=== PATIENT | male | born 1935 ===

== ENCOUNTER 2023-10-02 13:18 | Emergency (ER) | payer OTHER ==
[~2023-10-02] VITALS: Ht 175.2 cm; Wt 74.8 kg
[2023-10-02 13:58] LABS: BASO % 0.1 % (0.0-1.0); EOS % 0.1 % (1.0-4.0); HEMATOCRIT 41.6 % (42.0-52.0); LYMPH # 0.7 10*3/uL (1.3-4.4); LYMPH % 5.2 % (27.0-41.0); MEAN CELL VOLUME 94.5 fl (80.0-94.0); MEAN CORPUSCULAR HGB 30.9 pg (27.0-31.0); MEAN CORPUSCULAR HGB CONC 32.7 g/dl (33.0-37.0); MEAN PLATELET VOLUME 9.7 fl (9.6-12.3); MONO # 1.1 10*3/uL (0.1-1.0); MONO % 7.8 % (3.0-9.0); NEUT # 11.9 10*3/uL (2.3-7.9); NEUT % 86.4 % (47.0-73.0); PLATELET COUNT AUTOMATED 226 10*3/uL (130-400); RED CELL DISTRI WIDTH 13.3 % (0-14.5); WHITE BLOOD COUNT 13.7 10*3/uL (4.8-10.8)
[2023-10-02] MEDS ORDERED: LORazepam 1 MG TAB PO ONE (14:30)
[2023-10-02 14:34] LABS: ALKALINE PHOSPHATASE 73 U/L (46-116); BUN 14 mg/dl (9-23); CHLORIDE 104 mmol/L (98-107); LIPASE 19 U/L (12-53); POTASSIUM 4.4 mmol/L (3.4-5.1); SGPT/ALT 15 U/L (5-49); TOTAL PROTEIN 6.2 gm/dL (6.0-8.0)
[2023-10-02 15:21] LABS: BILIRUBIN Negative (Negative); BLOOD Trace-Intact (Negative); CLARITY Clear (Clear); COLOR Yellow (Yellow); GLUCOSE Negative (Negative); KETONE Negative (Negative); LEUKO ESTERASE 3+ (Negative); NITRITE Negative (Negative); UROBILINOGEN 0.2 E.U./dl (0.0-1.0)
[2023-10-02 15:30] LABS: BACTERIA 1+; RBC 41-50 rbc/hpf (0-2); WBC 31-40 wbc/hpf (0-5)
[2023-10-02] MEDS ORDERED: CIPRO500 MG PO (16:08)
== END 2023-10-02 16:15 | disposition home or self-care (01) ==
LOC: ED 13:18
PROVIDERS: Internal Medicine
DX: F41.9 Anxiety disorder, unspecified (principal); N39.0 Urinary tract infection, site not specified; F32.A Depression, unspecified; M19.90 Unspecified osteoarthritis, unspecified site

== ENCOUNTER 2023-12-31 20:20 | Emergency (ER) | payer OTHER ==
[~2023-12-31] VITALS: Ht 177.8 cm; Wt 73.5 kg
[~2023-12-31 20:20] MED LIST: CIPRO500 MG PO
[2023-12-31] MEDS ORDERED: MEPERIDINE HYDROCHLORIDE 25 MG/1 ML VIAL IM ONE (20:30)
[2023-12-31] MEDS ORDERED: Promethazine Hydrochloride 25 MG/ML VIAL IM ONE (20:35)
[2023-12-31] MEDS ORDERED: HYDROCODONE-AC1 EAC1 PO (21:13)
== END 2023-12-31 22:10 | disposition home or self-care (01) ==
LOC: ED
DX: G89.29 Other chronic pain (principal); M54.50 Low back pain, unspecified; F41.9 Anxiety disorder, unspecified; F32.A Depression, unspecified; M19.90 Unspecified osteoarthritis, unspecified site